=== PATIENT | male | born 1965 | race Caucasian/White ===

== ENCOUNTER 2019-07-06 08:57 | Emergency (ER) | payer OTHER ==
[~2019-07-06] VITALS: Ht 170.2 cm; Wt 125.2 kg
[2019-07-06] MEDS ORDERED: ZANAFLEX4 MG PO (09:03)
[2019-07-06] MEDS ORDERED: CEFDINIR300 MG PO (09:03)
[2019-07-06] MEDS ORDERED: PROAIR HFA8.5 GM (09:03)
[2019-07-06] MEDS ORDERED: PREDNISONE 10 M10 MG PO (09:04)
[2019-07-06 09:18] LABS: URINE BILIRUBIN NEGATIVE (Negative); URINE BLOOD 1+ (Negative); URINE CLARITY CLEAR; URINE COLOR YELLOW; URINE GLUCOSE-RANDOM NEGATIVE (Negative); URINE KETONES NEGATIVE (Negative); URINE LEUKOCYTES-REFLEX NEGATIVE (Negative); URINE NITRITE-REFLEX NEGATIVE (Negative); URINE PROTEIN TRACE (Negative); URINE SPECIFIC GRAVITY 1.025 (1.005-1.030); URINE UROBILINOGEN 0.2 E.U./dl (0.2-1.0)
[2019-07-06 09:28] LABS: CALCIUM OXALATE 0-3 Few /LPF (None Seen); CASTS None Seen /LPF (None Seen); URINE RBC None Seen /HPF (0-2); URINE WBC-REFLEX 0-5 Rare /HPF (0-5)
[2019-07-06 09:38] LABS: BE 2.8 mmol/L (-2 to +3); PCO2 39.9 mmHg (35.0-45.0); PO2 65.8 mmHg (75.0-100.0); pH 7.447 (7.340-7.450)
[2019-07-06 09:42] LABS: ABSOLUTE BASOPHILS 0.1 thou/uL (0.0-0.2); ABSOLUTE EOSINOPHILS 0.1 thou/uL (0.0-0.7); ABSOLUTE LYMPHOCYTES 1.4 thou/uL (0.8-5.3); ABSOLUTE MONOCYTES 1.2 thou/uL (0.0-1.2); ABSOLUTE NEUTROPHILS 12.7 thou/uL (1.6-8.1); BASOPHILS 0.5 %; EOSINOPHILS 0.5 %; HEMATOCRIT 45.7 % (42.0-52.0); LYMPHOCYTES 8.9 %; MCH 26.7 pg (26.0-34.0); MCHC 32.8 g/dL (28.0-37.0); MCV 81.6 fL (80.0-100.0); MONOCYTES 7.6 %; MPV 8.6 fl. (7.2-11.1); NUCLEATED RBCS 0 /100WBC; PLATELET COUNT* 282 thou/uL (150-400); POLYS 82.5 %; RBC 5.61 mil/uL (4.50-6.00); RDW-CV 14.9 % (10.5-14.5); WBC 15.4 thou/uL (4.0-11.0)
[2019-07-06 10:00] LABS: CALCIUM 8.7 mg/dL (8.5-10.1); CREATININE 1.2 mg/dL (0.6-1.3); POTASSIUM 3.6 mmol/L (3.5-5.1)
[2019-07-06 10:04] LABS: ALBUMIN 3.5 g/dL (3.4-5.0); MAGNESIUM 2.1 mg/dL (1.8-2.4); TOTAL BILIRUBIN 0.4 mg/dL (<0.1-1.0); TOTAL PROTEIN 7.2 g/dL (6.4-8.2)
[2019-07-06] MEDS ORDERED: TORADOL 10 MG T10 MG PO (13:53)
[2019-07-06] MEDS ORDERED: NORCO 5-325 TA1 EAC1 PO (13:53)
[2019-07-06 14:01] VITALS: BP 165/87
== END 2019-07-06 14:02 | disposition home or self-care (01) ==
LOC: M.ERS 08:57
PROVIDERS: Personal Emergency Response Attendant
DX: M94.0 Chondrocostal junction syndrome [Tietze] (principal); I10 Essential (primary) hypertension; F17.220 Nicotine dependence, chewing tobacco, uncomplicated; Z88.2 Allergy status to sulfonamides; Z87.442 Personal history of urinary calculi